=== PATIENT | female | born 1950 | race Caucasian/White ===

== ENCOUNTER 2018-11-22 19:19 | Emergency (ER) | payer OTHER ==
[~2018-11-22] VITALS: Ht 162.6 cm; Wt 63.5 kg
[~2018-11-22 19:19] MED LIST: ALPRAZOLAM 0.50.5 MG PO; ALPRAZOLAM0.5 M1 PO; ATENOLOL 50MG T50 M1 PO; CHLORZOXAZONE500 MG PO; COZAAR 25 MG TA25 M2 PO; GYNODIOL1 MG PO; HYDROCODON-ACE1 EAC7 PO; IBUPROFEN 600600 M1 PO; LYRICA100 MG PO; MIRALAX255 GM PO; MOM PO; NAPROSYN500 MG PO; NIFEDIPINE ER90 M1 PO; PRAVASTATIN SOD20 MG PO; PREMPRO 0.3 MG1 EACH PO; PRIMPRO PO; RANITIDINE 150150 M1 PO; SYNTHROID175 MCG PO; TUMS PO; ZOLOFT 50 MG TA50 M1 PO
[2018-11-22 19:23] VITALS: BP 221/89
== END 2018-11-22 20:20 | disposition left against medical advice (07) ==
LOC: ER 19:19
DX: S51.811A Laceration without foreign body of right forearm, initial encounter (principal); L72.3 Sebaceous cyst; K21.9 Gastro-esophageal reflux disease without esophagitis; I10 Essential (primary) hypertension; Z87.891 Personal history of nicotine dependence; Z88.5 Allergy status to narcotic agent; Z88.6 Allergy status to analgesic agent; Z88.8 Allergy status to other drugs, medicaments and biological substances; Z90.710 Acquired absence of both cervix and uterus; Z98.890 Other specified postprocedural states; Z86.73 Personal history of transient ischemic attack (TIA), and cerebral infarction without residual deficits; W10.0XXA Fall (on)(from) escalator, initial encounter; Y92.239 Unspecified place in hospital as the place of occurrence of the external cause; Y93.89 Activity, other specified; Y99.8 Other external cause status

== ENCOUNTER → 2019-11-05 | Outpatient (CLI) | payer OTHER | LOC: SJCVCIMAG 13:09 | PROVIDERS: ATTEND Nuclear Medicine Nuclear Cardiology | DX: I73.9 Peripheral vascular disease, unspecified (principal); M79.604 Pain in right leg; M79.605 Pain in left leg; I25.10 Atherosclerotic heart disease of native coronary artery without angina pectoris; I10 Essential (primary) hypertension; E78.00 Pure hypercholesterolemia, unspecified; Z79.899 Other long term (current) drug therapy; Z87.891 Personal history of nicotine dependence ==

== ENCOUNTER 2019-11-11 10:56 | Outpatient (CLI) | payer OTHER ==
[~2019-11-11] VITALS: Ht 162.6 cm; Wt 67.6 kg
[2019-11-11] VITALS (9 sets, daily range): BP systolic 113–143; BP diastolic 46–69
[2019-11-11] MEDS ORDERED: NORVASC 2.5 MG2.5 M1 PO (12:22)
[2019-11-11] MEDS ORDERED: CARVEDILOL25 MG PO (12:22)
[2019-11-11] MEDS ORDERED: ASA81BEC PO (12:22)
[2019-11-11] MEDS ORDERED: FUROSEMIDE 20 M20 MG PO (12:23)
[2019-11-11] MEDS ORDERED: GRALISE600 MG PO (12:24)
[2019-11-11] MEDS ORDERED: OMEPRAZOLE 20 M20 M1 PO (12:24)
[2019-11-11] MEDS ORDERED: OXYBUTYNIN 5 MG5 M2 PO (12:25)
[2019-11-11] MEDS ORDERED: CRESTOR40 MG PO (12:25)
[2019-11-11 13:37] LABS: HEMOGLOBIN 12.1 gm/dL (12.0-15.0); MCHC 32.7 g/dL (28.0-37.0); MCV 88.7 fL (80.0-100.0); RBC 4.17 mil/uL (4.20-5.00); RDW 14.6 % (10.5-14.5); WBC 4.4 thou/uL (4.0-11.0)
[2019-11-11 13:46] LABS: CALCIUM 8.9 mg/dL (8.5-10.1); CREATININE 1.9 mg/dL (0.6-1.0); POTASSIUM 4.7 mmol/L (3.5-5.1)
--- NOTE | 2019-11-11 19:23 | NUR ---
PT CARE ASSUMED AT 1810. ASSESSMENT CHARTED. MEDICATION CHARTED. RANDOLPH; LT GROIN, MYNX. 2 STENTS. HEMOSTASIS 1700, BEDREST OVER AT 1999. BRUISING AND HEMOTOMA IN APPEALS OFFICER. PT ON VITALS MACHINE AT BEDSIDE. PT DROWSY CURRENTLY.
--- NOTE | 2019-11-12 02:33 | NUR ---
ASSUMED CARE OF PATIENT AT 1900. RECEIVED REPORT THAT PATIENT HAD ARRIVED ON FLOOR AT 181 AND THAT PATIENT HAD ACHIEVED HEMOSTASIS AT 170O. MAINTAINED BEDREST UNTIL 2200. DRESSING TO LEFT GROIN INCISION REMAINS C/D/I. ECCHYMOSIS SURROUNDS INCISION SITE BUT AREA REMAINS SOFT. PATIENT STATES THAT THE SITE IS SORE. PEDAL PULSES PALPABLE. POSTCATH VS/ASSESSMENT COMPLETE.
[2019-11-12 04:09] VITALS: BP 126/53
[2019-11-12 05:03] LABS: HEMATOCRIT 31.3 % (37.0-47.0); HEMOGLOBIN 10.6 gm/dL (12.0-15.0); MCH 29.8 pg (26.0-34.0); MCHC 33.9 g/dL (28.0-37.0); MCV 88.1 fL (80.0-100.0); RBC 3.55 mil/uL (4.20-5.00); RDW 14.6 % (10.5-14.5); WBC 4.8 thou/uL (4.0-11.0)
[2019-11-12 05:13] LABS: CALCIUM 8.3 mg/dL (8.5-10.1); CREATININE 1.4 mg/dL (0.6-1.0)
[2019-11-12 06:58] VITALS: BP 148/60
[2019-11-12] MEDS ORDERED: CLOPIDOGREL75 MG PO (07:26)
[2019-11-12 08:15] VITALS: BP 148/60
[2019-11-12 09:49] VITALS: BP 148/60
--- NOTE | 2019-11-12 11:32 | NUR ---
PT CARE ASSUMED AT 0700. ASSESSMENT CHARTED. MEDICATION CHARTED. LT GROIN BRUISES FROM PREVIOUS HEMATOMA AFTER CATH. PT TO BE DISCHARGED HOME. TELEMETRY D/C'D. IV D/C'D.
== END 2019-11-12 12:57 | disposition home or self-care (01) ==
LOC: CATH 10:56 → 2N 18:13 → CATH 11-12 12:57
PROVIDERS: Nurse Practitioner; ATTEND Nuclear Medicine Nuclear Cardiology
DX: I70.213 Atherosclerosis of native arteries of extremities with intermittent claudication, bilateral legs (principal); I70.1 Atherosclerosis of renal artery; R10.9 Unspecified abdominal pain; R22.9 Localized swelling, mass and lump, unspecified; I10 Essential (primary) hypertension; I25.10 Atherosclerotic heart disease of native coronary artery without angina pectoris; E78.5 Hyperlipidemia, unspecified; K21.9 Gastro-esophageal reflux disease without esophagitis; Z86.73 Personal history of transient ischemic attack (TIA), and cerebral infarction without residual deficits; Z90.710 Acquired absence of both cervix and uterus; Z98.890 Other specified postprocedural states; Z79.899 Other long term (current) drug therapy; Z88.0 Allergy status to penicillin
CPT/HCPCS: 10081